=== PATIENT | female | born 1985 | race African-American/Black ===

== ENCOUNTER 2022-09-04 15:06 | Emergency (ER) | payer BC ==
[~2022-09-04] VITALS: Ht 170.2 cm; Wt 114.0 kg
[2022-09-04 15:24] VITALS: BP 150/86
[2022-09-04] MEDS ORDERED: TETRACAINE 0.5% OPHTH DROPS 4ML LEFTEYE ONE (18:30)
[2022-09-04] MEDS ORDERED: FLUORESCEIN SODIUM 1MG/STRIP LEFTEYE ONE (18:30)
[2022-09-04] MEDS ORDERED: POLY15DR31 LEFTEYE (18:43)
== END 2022-09-04 19:02 | disposition home or self-care (01) ==
LOC: ER 15:28
DX: H04.122 Dry eye syndrome of left lacrimal gland (principal)
CPT/HCPCS: 99282